=== PATIENT | male | born 1965 | race Caucasian/White ===

== ENCOUNTER 2019-11-16 06:25 | Outpatient (CLI) | payer OTHER, SELFPAY ==
[2019-11-16 17:27] LABS: SARS-CoV-2 RNA PCR Negative
== END 2019-11-16 06:26 | disposition home or self-care (01) ==
LOC: ANHCOVIDDT 06:25
PROVIDERS: PCP Internal Medicine; Visit Provider Internal Medicine Gastroenterology
DX: Z01.812 Encounter for preprocedural laboratory examination (principal); Z11.59 Encounter for screening for other viral diseases
CPT/HCPCS: 87635; C9803; U0003

== ENCOUNTER 2019-11-19 03:13 | Day surgery (SDC) | payer OTHER, SELFPAY ==
[2019-11-11 13:54] VITALS: BMI 26.7
[2019-11-19 07:41] VITALS: BP 88/65; PULSE 94; RESP 18; TEMP 36.6; O2SAT 99
[2019-11-19] MEDS: LACTATED RINGERS 1,000 ML 150 ML IV CONT (07:55)
[2019-11-19 08:00] LABS: Glucose Point of Care 113 (65-105)
--- NOTE | 2019-11-19 08:47 | WPDANESEPPF ---
Anes - Initial Pre Proc Eval Procedure: Operation Date: 11/19/19 09:00 Proposed Procedures p Screening Colonoscopy - Gregg Knott MD Date/Time: 11/19/19 08:47 Surgeon: Gregg Knott MD Pre Op Diagnosis: Neoplasm Screening Patient Data Age: 54 Gender: M Height: 6 ft 1 in Weight: 88 kg Last Vital Signs Temp 97.8 F 11/19/19 07:41 Pulse 94 11/19/19 07:41 Resp 18 11/19/19 07:41 BP 88/65 L 11/19/19 07:41 Pulse Ox 99 11/19/19 07:41 Allergies Allergy/AdvReac Type Severity Reaction Status Date / Time No Known Allergies Allergy Unverified 11/19/19 07:36 Home Medications Medication Instructions Recorded Confirmed Type acyclovir 400 mg PO BID 11/11/19 11/19/19 History allopurinol 300 mg PO DAILY 11/11/19 11/19/19 History aspirin 81 mg PO DAILY 11/11/19 11/19/19 History carvedilol 12.5 mg PO BID 11/11/19 11/19/19 History ciprofloxacin HCl 500 mg PO BID 11/11/19 11/19/19 History empagliflozin [Jardiance] 10 mg PO DAILY 11/11/19 11/19/19 History fluconazole 200 mg PO BID 11/11/19 11/19/19 History glimepiride 2 mg PO BID 11/11/19 11/19/19 History lisinopril 5 mg PO DAILY 11/11/19 11/19/19 History loratadine 10 mg PO DAILY PRN 11/11/19 11/19/19 History rosuvastatin 10 mg PO HS 11/11/19 11/19/19 History sacubitril-valsartan [Entresto] 1 tablet PO BID 11/11/19 11/19/19 History Laboratory Tests 11/19/19 07:56 POC Capillary Glucose 113 mg/dl H mg/dl (65-105) Patient hx anesthesia problems: none Family hx anesthesia problems: none PMFSH Past Medical History Medical History (Updated 11/19/19 @ 08:47 by Rojelio Kessler MD) Diabetes Hyperlipidemia Hypertension Non-Hodgkin lymphoma in remission Anes - Eval Final PreProcedure Day of Procedure 11/19/19 08:47 Patient weight: normal Heart: regular rate and rhythm Lungs: clear to auscultation Airway: Mallampati scale class II Neurological: alert and oriented Last oral intake: >/= 8 hours ASA classification: III Emergent: no Anesthetic plan: proceed Anesthesia type and monitoring: general GIVS and standard monitoring Informed Consent: The patient's anesthetic plan and its attendant risks and benefits were discussed with the patient/family/POA. Questions were solicited and answers provided to the satisfaction of the patient/family/POA.
--- NOTE | 2019-11-19 08:58 | PM.HPGS ---
History of Present Illness History of Present Illness Consent: Risks, benefits, and alternatives have been discussed and questions answered. Patient agrees to proceed with procedure. Chief complaint: Neoplasm Screening Narrative: Gab Andrews is a 54 year old male here for first colonoscopy Review of Systems Constitutional: Constitutional: Denies headache(s) and Denies weakness Eyes: Eyes: Denies blurry vision ENT: Reports Normal hearing present, Denies headache(s) and Denies neck pain Cardiovascular: Cardiovascular: Denies chest pain and Denies dyspnea Respiratory: Respiratory: Denies dyspnea Gastrointestinal: Gastrointestinal: Reports no additional gastrointestinal complaints Genitourinary: Genitourinary: Denies dysuria Musculoskeletal: Musculoskeletal: Denies neck pain Integumentary/Breasts: Skin/Breast: Denies dry skin Neurologic: Reports Normal hearing present, Denies headache(s) and Denies weakness Psychiatric: Psychiatric: Denies anxiety Endocrine: Endocrine: Denies change in body appearance Hematologic/Lymphatic: Hematologic/Lymphatic: Denies easy bleeding Allergic/Immunologic: Allergic/Immunologic: Denies urticaria PMFSH Past Medical History Medical History (Updated 11/19/19 @ 08:59 by Gregg Knott MD) Colon cancer screening Diabetes Hyperlipidemia Hypertension Non-Hodgkin lymphoma in remission Meds Home Medications and Allergies Home Medications Medication Instructions Recorded Confirmed Type acyclovir 400 mg PO BID 11/11/19 11/19/19 History allopurinol 300 mg PO DAILY 11/11/19 11/19/19 History aspirin 81 mg PO DAILY 11/11/19 11/19/19 History carvedilol 12.5 mg PO BID 11/11/19 11/19/19 History ciprofloxacin HCl 500 mg PO BID 11/11/19 11/19/19 History empagliflozin [Jardiance] 10 mg PO DAILY 11/11/19 11/19/19 History fluconazole 200 mg PO BID 11/11/19 11/19/19 History glimepiride 2 mg PO BID 11/11/19 11/19/19 History lisinopril 5 mg PO DAILY 11/11/19 11/19/19 History loratadine 10 mg PO DAILY PRN 11/11/19 11/19/19 History rosuvastatin 10 mg PO HS 11/11/19 11/19/19 History sacubitril-valsartan [Entresto] 1 tablet PO BID 11/11/19 11/19/19 History Allergies Allergy/AdvReac Type Severity Reaction Status Date / Time No Known Allergies Allergy Unverified 11/19/19 07:36 Vital Signs Vital Signs - 24 hr 11/19/19 07:41 Temperature 97.8 F Pulse Rate 94 Respiratory Rate 18 Blood Pressure 88/65 L Pulse Oximetry 99 Exam Const: General: comfortable and no acute distress HENMT: General nose exam: Normal nares present Eyes: General: appearance normal, both eyes and all related structures Neck: Neck: no JVD Resp: Auscultation: clear to auscultation bilaterally Cardio: Rate: regular rate Rhythm: regular rhythm GI: Inspection: non-distended GI Palp: Yes Soft to palpation Skin: General skin exam: normal color Neuro: General: gait normal Speech: normal speech Extrem: General: normal to inspection Psych: Mental Status: mental status grossly normal Assessment and Plan Assessment and plan (1) Colon cancer screening: Code(s): Z12.11 - Encounter for screening for malignant neoplasm of colon Status: Acute Assessment and Plan: will proceed with colonoscopy (2) Hypertension: Code(s): I10 - Essential (primary) hypertension Status: Acute (3) Non-Hodgkin lymphoma in remission: Code(s): C85.90 - Non-Hodgkin lymphoma, unspecified, unspecified site Status: Acute
[2019-11-19 09:22] VITALS: BP 92/63; PULSE 94; RESP 15; O2SAT 95
[2019-11-19 09:32] VITALS: BP 99/68; PULSE 83; RESP 15; O2SAT 98
[2019-11-19 09:42] VITALS: BP 102/69; PULSE 80; RESP 15; O2SAT 98
== END 2019-11-19 09:48 | disposition home or self-care (01) ==
PROVIDERS: PCP Internal Medicine; Visit Provider Internal Medicine Gastroenterology
PROC: 0DJD8ZZ Inspection of Lower Intestinal Tract, Via Natural or Artificial Opening Endoscopic (ICD-10-PCS; CPT 45378; principal; 2019-11-19 09:00)
DX: Z12.11 Encounter for screening for malignant neoplasm of colon (principal); K57.30 Diverticulosis of large intestine without perforation or abscess without bleeding; I10 Essential (primary) hypertension; E78.5 Hyperlipidemia, unspecified; E11.9 Type 2 diabetes mellitus without complications; Z85.72 Personal history of non-Hodgkin lymphomas; Z79.82 Long term (current) use of aspirin
CPT/HCPCS: 45378; 87635; C9803; J2704; J7120; U0003

== ENCOUNTER 2021-07-24 08:35 | Outpatient (CLI) | payer OTHER, SELFPAY ==
[2021-07-24 09:09] LABS: Hemoglobin A1C 8.2 % (<5.7)
[2021-07-24 09:26] LABS: Alanine Aminotransferase 30 U/L (16-63); Albumin Level 4.3 g/dL (3.4-5.0); Alkaline Phosphatase 100 U/L (46-116); Anion Gap 11 mmol/L (8-16); Aspartate Amino Transferase 14 U/L (15-37); Bilirubin,Total 0.7 mg/dL (0.00-1.00); Blood Urea Nitrogen 20 mg/dL (7-18); Calcium 9.4 mg/dL (8.5-10.1); Carbon Dioxide 28 mmol/L (21-32); Chloride 101 mmol/L (98-108); Estimated Glomerular Filt Rate 55; Glucose 208 mg/dL (70-99); NT Pro B Type Natriuretic Pept 46 pg/mL (0-125); Osmolality Calculated 298 mOsm/kg (285-295); Potassium 4.3 mmol/L (3.5-5.1); Sodium 140 mmol/L (136-145); Total Protein 6.9 g/dL (6.4-8.2); Uric Acid 4.9 mg/dL (3.5-7.2)
== END 2021-07-24 08:36 | disposition home or self-care (01) ==
PROVIDERS: PCP Internal Medicine; Visit Provider Internal Medicine
DX: M10.9 Gout, unspecified (principal); E11.9 Type 2 diabetes mellitus without complications; R06.9 Unspecified abnormalities of breathing
CPT/HCPCS: 36415; 80053; 83036; 83880; 84550